=== PATIENT | male | born 1945 | race Caucasian/White ===

== ENCOUNTER 2025-03-27 13:31 | Emergency (ER) | payer MEDICARE, OTHER ==
[~2025-03-27] VITALS: Ht 180.3 cm; Wt 73.6 kg
[2025-03-27 13:35] VITALS: BP 113/66; TEMP 97.5; O2SAT 100
[2025-03-27] MEDS ORDERED: ECOT81TA5 PO (13:47)
[2025-03-27] MEDS ORDERED: ZOLP-533 (13:47)
[2025-03-27] MEDS ORDERED: TAMS1CAP17 (13:47)
[2025-03-27] MEDS ORDERED: zolpidem (13:47)
[2025-03-27] MEDS ORDERED: ELIQ5TAB (13:47)
[2025-03-27] MEDS ORDERED: ENTR1TAB7 (13:47)
[2025-03-27] MEDS ORDERED: SELE200T10 PO (13:55)
[2025-03-27] MEDS ORDERED: VITA-243 PO (13:55)
[2025-03-27] MEDS ORDERED: METO200T15 PO (13:55)
[2025-03-27] MEDS ORDERED: JARD1TAB (13:55)
[2025-03-27] MEDS ORDERED: FURO20TA2 PO (13:55)
[2025-03-27] MEDS ORDERED: TRIA1CR80 (13:55)
[2025-03-27] MEDS ORDERED: SPIR-10 PO (13:55)
[2025-03-27] MEDS ORDERED: MAGN64TASA PO (13:55)
[2025-03-27] MEDS ORDERED: CICL0.7739 (13:55)
[2025-03-27] MEDS ORDERED: TAMS1CAP17 PO (13:55)
[2025-03-27] MEDS ORDERED: LEVO112T2 PO (13:55)
[2025-03-27] MEDS ORDERED: FOLI400T5 PO (13:55)
[2025-03-27] MEDS ORDERED: FAMO20TA PO (13:55)
[2025-03-27] MEDS ORDERED: NOXI1TAB PO (13:55)
[2025-03-27] MEDS ORDERED: ATOR80TA59 (13:55)
[2025-03-27] MEDS ORDERED: OMEGCAP9 PO (13:55)
[2025-03-27] MEDS ORDERED: OCUV1CAP4 PO (13:55)
== END 2025-03-27 17:05 | disposition home or self-care (01) ==
LOC: M ED 13:31
DX: S90.02XA Contusion of left ankle, initial encounter (principal); W22.8XXA Striking against or struck by other objects, initial encounter; Y92.9 Unspecified place or not applicable; Y93.9 Activity, unspecified; Y99.9 Unspecified external cause status; I25.10 Atherosclerotic heart disease of native coronary artery without angina pectoris; I25.2 Old myocardial infarction; Z79.01 Long term (current) use of anticoagulants; Z79.82 Long term (current) use of aspirin; Z79.899 Other long term (current) drug therapy; Z88.0 Allergy status to penicillin; Z88.1 Allergy status to other antibiotic agents; Z88.8 Allergy status to other drugs, medicaments and biological substances